=== PATIENT | female | born 1990 | race Two or more races ===

== ENCOUNTER 2018-10-02 09:30 | Inpatient (IN) | payer OTHER ==
[2018-10-09] MEDS ORDERED: PHENAZOPYRIDINE HCL 100 MG TABLET (FP) PO ONE (06:52)
[2018-10-09] MEDS ORDERED: CEFAZOLIN 1 GM/D5W 1 GM/50 ML BAG IVPB ONE (06:52)
[2018-10-09 07:00] VITALS: BMI 54.3
[2018-10-09] MEDS ORDERED: PHENAZOPYRIDINE HCL 100 MG TABLET (FP) ONE (07:04)
[2018-10-09] MEDS ORDERED: CEFAZOLIN 1 GM/D5W 1 GM/50 ML BAG ONE (07:05)
--- NOTE | 2018-10-09 07:53 | HP ---
History & Physical Update - History History: No Change - Physical Physical: No Change - Assessment Assessment: No Change - Plan Plan: No Change (No change in medical history since preop evaluation with PCP on 09/29/18. No h/o dvt/pe or use of anticoagulants.)
[2018-10-09] MEDS ORDERED: ceFAZolin SODIUM 1 GM VIAL ONE (07:56)
[2018-10-09] MEDS ORDERED: ROCURONIUM BROMIDE 50 MG/5 ML VIAL ONE ×2 (07:56→09:02)
[2018-10-09] MEDS ORDERED: LIDOCAINE HCL/PF 2% SDV 5ML VIAL ONE (07:56)
[2018-10-09] MEDS ORDERED: fentaNYL CITRATE 250 MCG/5 ML VIAL ONE (07:56)
[2018-10-09] MEDS ORDERED: PROPOFOL 20 ML ONE ×2 (07:57)
[2018-10-09] MEDS ORDERED: MIDAZOLAM HCL 2 MG/2 ML SINGLE DOSE VIAL ONE (07:57)
[2018-10-09] MEDS ORDERED: DESFLURANE GAS 240 ML BOTTLE IH ONE (08:02)
[2018-10-09] MEDS ORDERED: cefoTEtan DISODIUM 1 GM VIAL (RESTRICTED TO ID) IVPB ONE ×2 (08:20)
[2018-10-09] MEDS ORDERED: DEXAMETHASONE SOD PHOSPHATE 4 MG/1 ML VIAL ONE (08:35)
[2018-10-09] MEDS ORDERED: GLYCOPYRROLATE 0.2 MG/1 ML VIAL ONE (09:24)
[2018-10-09] MEDS ORDERED: NEOSTIGMINE METHYLSULFATE 0.5 MG/ML - 10 ML MDV ONE (09:24)
[2018-10-09] MEDS ORDERED: PROMETHAZINE HCL 25 MG/1 ML VIAL IVPUSH PRN (10:14)
[2018-10-09] MEDS ORDERED: ONDANSETRON 4 MG/2 ML VIAL IVPUSH PRN ×2 (10:14→10:47)
[2018-10-09] MEDS ORDERED: LACTATED RINGERS SOLUTION 1,000 ML IV SCH (10:15)
[2018-10-09] MEDS ORDERED: HYDROmorphone *PCA* 10MG/50ML DISP.SYRIN PCA ONE ×2 (10:15)
[2018-10-09] MEDS ORDERED: ACETAMINOPHEN 1000 MG/100 ML VIAL (NON FORMULARY) IVPB PRN (10:18)
[2018-10-09] MEDS ORDERED: HYDROmorphone *PCA* 10MG/50ML DISP.SYRIN PCA SCH (10:30)
--- NOTE | 2018-10-09 10:36 | SURG ---
Surgery Welcome Wagon Hostess Note Welcome Wagon Hostess: Cathy Louie PA-C (Suzy) Date of Service: 10/09/18 Diagnosis: Fibroids Procedure: Open abdominal myomectomy, left ovarian cystectomy, removal of right paratubal cyst I was present for the entirety of the operative procedure. For further detail, please refer to operative report. Visit type - Case Type Case Type: Scheduled - Emergency Emergency Visit: No - New patient This patient is new to me today: Yes Date on this admission: 10/09/18 - Critical Care Critical Care patient: No
--- NOTE | 2018-10-09 10:40 | OP ---
Operative Note - Note: Operative Date: 10/09/18 Pre-Operative Diagnosis: Uterine fibroids Operation: Open abdominal myomectomy, left ovarian cystectomy, removal of right paratubal cyst Findings: as dictated Implants: none Post-Operative Diagnosis: Same as Pre-op Surgeon: Katlyn Carmichael Check Scaler: Cathy Louie Anesthesiologist/WATER TRUCK DRIVER: Violetta Carrillo Anesthesia: General Specimens Removed: fibroid, left ovarian cyst, right paratubal cyst Estimated Blood Loss (mls): 75 (ml) Drains & Tubes with Location: none Fluid Volume Replaced (mls): 1,300 (ml) Operative Report Dictated: Yes
[2018-10-09] MEDS ORDERED: BISACODYL 5 MG TABLET.DR (FP) PO PRN (10:47)
[2018-10-09] MEDS ORDERED: IBUPROFEN 800 MG/8 ML IJ IVPB PRN (10:47)
[2018-10-09] MEDS ORDERED: DOCUSATE SODIUM 100 MG CAPSULE (FP) PO PRN (10:47)
[2018-10-09] MEDS ORDERED: ACETAMINOPHEN INJECTION 100 ML IVPB ONE (10:50)
[2018-10-09] MEDS ORDERED: ALBUTEROL SO4 8 GM HFA INHALER IH PRN (10:51)
[2018-10-09] MEDS ORDERED: LACTATED RINGERS SOLUTION 1,000 ML/1,000 ML INFUS.BAG IV SCH (11:00)
[2018-10-09] MEDS ORDERED: ACETAMINOPHEN 1000 MG/100 ML VIAL (NON FORMULARY) IVPB ONE (11:12)
[2018-10-09] MEDS ORDERED: PROMETHAZINE HCL 25 MG/1 ML VIAL ONE (11:25)
[2018-10-09] MEDS ORDERED: IBUPROFEN 800 MG/8 ML IJ IVPB ONE (11:40)
--- NOTE | 2018-10-09 13:18 | OP ---
Operative Note - Note: Operative Date: 10/09/18 Pre-Operative Diagnosis: Leiomyomatous Uterus uterus. Intramural myoma Operation: Abdominal myomectomy. left ovarian cystectomy. right paraovarian cystectomy Findings: 6 cm myoma serosal 3cm left ovarian cyst 2 cm right paraovarian cystectomy Post-Operative Diagnosis: Same as Pre-op (Left ovarian cyst right paraovarian cyst) Surgeon: Katlyn Carmichael First Aid Attendant: Cathy Louie Anesthesia: General Estimated Blood Loss (mls): 50 Operative Report Dictated: Yes
[2018-10-09] MEDS: CEFAZOLIN 2 GM/D5W 2 GM/50 ML ML IVPB SCH (18:28)
[2018-10-09 19:38] LABS: ANION GAP 7 MMOL/L (8-16); BLOOD UREA NITROGEN 15 mg/dL (7-18); CALCIUM 8.5 mg/dL (8.5-10.1); CHLORIDE 104 mmol/L (98-107); CO2 26 mmol/L (21-32); GLUCOSE,RANDOM 116 mg/dL (74-106); POTASSIUM 4.9 mmol/L (3.5-5.1); SODIUM 137 mmol/L (136-145)
--- NOTE | 2018-10-09 20:48 | OP ---
DATE OF OPERATION: 10/09/2018 PREOPERATIVE DIAGNOSES: Leiomyomatous uterus and intramural myoma. OPERATION: Abdominal myomectomy, left ovarian cystectomy, and right paraovarian cystectomy. SURGEON: Katlyn Carmichael MD EMERGENCY MEDCL EMT: Sandra Louie. POSTOPERATIVE DIAGNOSES: Leiomyomatous uterus, intramural myoma, left ovarian cyst, and right paraovarian cyst. ANESTHESIA: General. ANESTHESIOLOGIST: Violetta Carrillo MD PROCEDURE: Patient was taken to the operating room, placed in supine position, prepped and draped in usual sterile fashion. A timeout was performed in accordance with hospital regulation. A Pfannenstiel skin incision was made through the patient's previous scar. Cautery was then used to go through layers of abdominal wall to the level of the fascia. Fascia was cut in the midline, and cautery was then used to open the fascia in the following fashion. Aurora was then used to bluntly and sharply dissect the rectus muscle off the fascia. Muscles split in the midline and peritoneal cavity was then entered and carried upward and downward. A leiomyomatous uterus was exteriorized. Abdominal packing was then done. Tourniquet was placed in a clear space of the broad ligament and secured. Cautery was then used to make a fundal incision, approximately 6 cm, and using sharp and blunt technique, the very calcified myoma was removed. Hemostasis was achieved using cautery. Muscle was then reapproximated using continuous locking suture with using 0 Vicryl suture, and the serosa of the uterus was closed using 2-0 V-Loc suture in continuous fashion. Hemostasis was achieved. Examination of the ovaries revealed a left ovarian cyst, approximately 3 cm. Cautery was then used to enter the cyst, and cyst wall was then removed along with contents and submitted to Pathology. Hemostasis achieved using cautery. Attention was then drawn to the right ovary where a paraovarian cyst was noted and cautery of the stalk of the cyst wall was done and cyst was submitted to Pathology. No other myomas were noted in the uterus. The tourniquet was then removed. Packing was also removed. Uterus was placed back into the abdomen after Interceed was placed on the incision of the uterus. Peritoneum was then closed using 0 Vicryl suture. Fascia was then closed using 0 Vicryl suture in 2 parts. Subcutaneous was approximated using 2-0 Vicryl suture. The skin was then closed using 3-0 Vicryl in subcuticular fashion. Wound was washed and dressed. Patient tolerated the procedure well. Estimated blood loss was about 50 mL. Milind [id number] MTDD
[2018-10-09 23:35] LABS: HEMATOCRIT 34.5 % (32.4-45.2); HEMOGLOBIN 11.8 GM/dL (10.7-15.3); MCHC 34.1 g/dl (32.0-36.0); MEAN CELL VOLUME 87.9 fl (80-96); MEAN PLT VOLUME 9.4 fl (7.5-11.1); PLATELET COUNT 272 K/MM3 (134-434); RBC 3.93 M/mm3 (3.60-5.2); RDW 13.9 % (11.6-15.6); WHITE BLOOD COUNT 11.5 K/mm3 (4.0-10.0)
[2018-10-10] MEDS: CEFAZOLIN 2 GM/D5W 2 GM/50 ML ML IVPB SCH (01:25)
[2018-10-10 06:59] LABS: HEMATOCRIT 34.4 % (32.4-45.2); HEMOGLOBIN 11.1 GM/dL (10.7-15.3); MCH 28.6 pg (25.7-33.7); MCHC 32.2 g/dl (32.0-36.0); MEAN CELL VOLUME 88.7 fl (80-96); MEAN PLT VOLUME 8.7 fl (7.5-11.1); PLATELET COUNT 253 K/MM3 (134-434); RBC 3.87 M/mm3 (3.60-5.2); RDW 13.5 % (11.6-15.6); WHITE BLOOD COUNT 11.5 K/mm3 (4.0-10.0)
[2018-10-10 07:26] LABS: ANION GAP 8 MMOL/L (8-16); BLOOD UREA NITROGEN 13 mg/dL (7-18); CALCIUM 8.3 mg/dL (8.5-10.1); CHLORIDE 102 mmol/L (98-107); CO2 26 mmol/L (21-32); CREATININE 0.9 mg/dL (0.55-1.3); GLUCOSE,RANDOM 108 mg/dL (74-106); POTASSIUM 4.3 mmol/L (3.5-5.1); SODIUM 135 mmol/L (136-145)
[2018-10-10] MEDS: ACETAMINOPHEN 325 MG TABLET (FP) PO PRN ×4 (08:12→21:41)
[2018-10-10] MEDS: oxyCODONE HCL 5 MG TABLET PO PRN ×5 (08:13→21:40)
--- NOTE | 2018-10-10 08:40 | PN ---
Progress Note (short form) - Note Progress Note: POD 1, s/p Abdominal myomectomy, left ovarian cystectomy, right paraovarian cystectomy Pt seen and examined. Reports continuous pain. Utilizing YARN COMBER overnight, YARN COMBER ran out this AM, awaiting RN for PO meds. Tolerating water, has not advanced diet yet. Has not been oob, walls in place. Scant vaginal bleeding. Has not passed flatus. Denies cp/sob, n/v/d, calf pain or edema. Vital Signs Temp 97.5 F L 10/10/18 06:00 Pulse 65 10/10/18 06:00 Resp 18 10/10/18 06:00 BP 126/85 10/10/18 06:00 Pulse Ox 100 10/09/18 13:00 Intake & Output 10/09/18 10/09/18 10/10/18 11:59 23:59 11:59 Intake Total 1900 1650 1100 Output Total 1050 650 Balance 1900 600 450 Intake: IV 1700 850 700 Lactated Ringers Solution 850 700 1,000 ml @ 125 mls/hr IV ASDIR RAMONA Rx#: [id number] IVPB 100 300 Oral 700 100 Other 200 Output: Urine 1050 650 Walls 850 650 Other: Voiding Method Indwelling Catheter Indwelling Catheter CBC, BMP 10/10/18 06:00 10/10/18 06:00 Gen: awake, alert, nad. Laying in bed appears uncomfortable Resp: unlabored on NC, cta b/l CV: rrr, s1s2 Abdomen: soft, nt/nd, dressing c/d/i Ext: b/l calf soft/nt A/P: 28 y/o F w/ h/o Leiomyomatous Uterus, Intramural myoma, now POD 1 s/p Abdominal myomectomy, left ovarian cystectomy, right paraovarian cystectomy. Pt with significant pain after YARN COMBER ran out. PO narcotics and non-narcotic analgesia initiated for pain control. P: D/C walls Pain control as ordered: Oxycodone 5/10mg q4hrs prn, Tylenol 650mg q4hrs prn, Ibuprofen 800mg q8hrs, Dilaudid 2mg IV for BTP Oob ad jensen DVT prophylaxis with Lovenox 40mg qd, B/L scds at all times while in bed Bowel regimen as ordered Advance diet as tolerated Incentive spirometry strongly encouraged VS per routine IVF until tolerating PO Plan for d/c tomorrow above d/w attending Dr Carmichael
[2018-10-10] MEDS ORDERED: oxyCODONE HCL 5 MG TABLET PO PRN ×2 (10:00)
[2018-10-10] MEDS: ENOXAPARIN NA (PORCINE) 40 MG/0.4 ML DISP.SYRIN SQ SCH (10:57)
[2018-10-10] MEDS ORDERED: PCA PUMP KEY 1 EACH EACH ONE (14:16)
--- NOTE | 2018-10-10 15:17 | PN ---
Progress Note (short form) - Note Progress Note: Anesthesia postop note 28 y/o F s/p GA for abdominal myomectomy, psychological science professor for postop pain management POD#1, vss, aaox3, pain well controlled, no complaints, psychological science professor d/c'ed earlier by the surgical team. No anesthesia complications.
--- NOTE | 2018-10-10 16:58 | PATH ---
Surgical Pathology Report Patient Name: JAREN RODRIGUEZ [facility]. Rec. #: [id number] /Age/Gender: 1990 (Age: 28) / F Account: [id number] Location: [facility] OBS/PRIZE FIGHTER Taken: 10/09/2018 Received: 10/09/2018 Reported: 10/10/2018 Physicians: Katlyn Carmichael M.D. Specimen(s) Received A: UTERINE FIBROID B: LEFT OVARIAN CYST C: RIGHT PARATUBAL CYST Clinical History Uterine fibroids Final Diagnosis A. FIBROID, ABDOMINAL MYOMECTOMY: CONSISTENT WITH DEGENERATED LEIOMYOMA WITH ASSOCIATED DYSTROPHIC CALCIFICATIONS. B. OVARIAN CYST, LEFT, REMOVAL: HEMORRHAGIC CORPUS LUTEUM CYST. C. PARATUBAL CYST, RIGHT, EXCISION: PARATUBAL CYST. Electronically Signed Ailyn Hunt M.D. Gross Description A. Received in formalin labeled "fibroid," is a 111 g, 6.5 x 5.5 x 5.3 cm ramirez, rubbery nodule, consistent with a fibroid. Sectioning reveals ramirez-brown, degenerative, focally calcified parenchyma. Respiratory Care Practitioner sections are submitted in 3 cassettes. B. Received in formalin labeled "left ovarian cyst," is a 2.6 x 2.4 x 0.3 cm aggregate ramirez-red soft tissue fragments, consistent with portion of a disrupted cyst. The specimen is submitted in toto in one cassette. C. Received in formalin labeled "right paratubal cyst," is a 1.8 x 1.0 x 0.8 cm intact, translucent cyst containing clear serous fluid. The specimen is serially sectioned and entirely submitted in one cassette. /10/09/201810/09/2018
[2018-10-11] MEDS: oxyCODONE HCL 5 MG TABLET PO PRN ×3 (01:13→09:52)
[2018-10-11] MEDS: ACETAMINOPHEN 325 MG TABLET (FP) PO PRN ×3 (01:13→09:51)
[2018-10-11] MEDS: ENOXAPARIN NA (PORCINE) 40 MG/0.4 ML DISP.SYRIN SQ SCH (09:45)
[2018-10-11 11:23] VITALS: BP 116/59; PULSE 91; TEMP 98.8
--- NOTE | 2018-10-11 13:16 | DS ---
Physical Exam: SUBJECTIVE: Patient seen and examined OBJECTIVE: Vital Signs Temperature 98.8 F 10/11/18 10:00 Pulse Rate 91 H 10/11/18 10:00 Respiratory Rate 18 10/11/18 10:00 Blood Pressure 116/59 L 10/11/18 10:00 O2 Sat by Pulse Oximetry (%) 95 10/10/18 09:00 PHYSICAL EXAM GENERAL: The patient is awake, alert, and fully oriented, in no acute distress. HEAD: Normal with no signs of trauma. EYES: PERRL, extraocular movements intact, sclera anicteric, conjunctiva clear. ENT: Ears normal, nares patent, oropharynx clear without exudates, moist mucous membranes. NECK: Trachea midline, full range of motion, supple. ABDOMEN: Soft, mild tenderness, nondistended, normoactive bowel sounds, no guarding, no rebound, no hepatosplenomegaly, no masses. Incision is clean with no erythema or discharge. EXTREMITIES: warm, well-perfused, no edema. NEUROLOGICAL: Cranial nerves II through XII grossly intact. Normal speech, gait not observed. PSYCH: Normal mood, normal affect. SKIN: Warm, dry, normal turgor, no rashes or lesions noted. LABS CBC,CMP WBC 11.5 K/mm3 (4.0-10.0) H 10/10/18 06:00 RBC 3.87 M/mm3 (3.60-5.2) 10/10/18 06:00 Hgb 11.1 GM/dL (10.7-15.3) 10/10/18 06:00 Hct 34.4 % (32.4-45.2) 10/10/18 06:00 MCV 88.7 fl (80-96) 10/10/18 06:00 MCH 28.6 pg (25.7-33.7) 10/10/18 06:00 MCHC 32.2 g/dl (32.0-36.0) 10/10/18 06:00 RDW 13.5 % (11.6-15.6) 10/10/18 06:00 Plt Count 253 K/MM3 (134-434) 10/10/18 06:00 MPV 8.7 fl (7.5-11.1) 10/10/18 06:00 Sodium 135 mmol/L (136-145) L 10/10/18 06:00 Potassium 4.3 mmol/L (3.5-5.1) 10/10/18 06:00 Chloride 102 mmol/L (98-107) 10/10/18 06:00 Carbon Dioxide 26 mmol/L (21-32) 10/10/18 06:00 Anion Gap 8 MMOL/L (8-16) 10/10/18 06:00 BUN 13 mg/dL (7-18) 10/10/18 06:00 Creatinine 0.9 mg/dL (0.55-1.3) 10/10/18 06:00 Creat Clearance w eGFR > 60 (>60) 10/10/18 06:00 Random Glucose 108 mg/dL (74-106) H 10/10/18 06:00 Calcium 8.3 mg/dL (8.5-10.1) L 10/10/18 06:00 HOSPITAL COURSE: 28yo F presented to the hospital for scheduled open myomectomy. Pt tolerated the procedure well and was admitted for pain control. Pt currently complains of some mild abdominal pain, but is controlled with pain medication. Pt currently ambulating and urinating well. Pt denies fever, chills, n/v. Scant vaginal bleeding. Passing flatus. Pt will follow up with Dr. Carmichael as an outpatient, see discharge plan for details. Date of Admission:10/09/18 Date of Discharge: 10/11/18 Minutes to complete discharge: 20 Visit type - Case Type Case Type: Scheduled - Emergency Emergency Visit: No - New patient This patient is new to me today: Yes Date on this admission: 10/11/18
== END 2018-10-11 13:32 | disposition home or self-care (01) | DRG 519 ==
LOC: JSAMEDAYSX 15:15 → UNDOADMIN 15:15 → JSAMEDAYSX 10-09 05:39 → J3W 10-09 13:17
PROVIDERS: ADMIT Obstetrics & Gynecology; ATTEND Obstetrics & Gynecology
PROC: 0UB20ZZ Excision of Bilateral Ovaries, Open Approach (ICD-10-PCS; 2018-10-09)
PROC: 0UB90ZZ Excision of Uterus, Open Approach (ICD-10-PCS; principal; 2018-10-09 08:00)
DX: D25.1 Intramural leiomyoma of uterus (principal); N83.202 Unspecified ovarian cyst, left side; N83.201 Unspecified ovarian cyst, right side
CPT/HCPCS: 36415; 80048; 85027; 86850; 86900; 86901; 88304-TC; 88305-TC; 94010; 94760; J0131

== ENCOUNTER 2019-05-07 07:47 | Day surgery (SDC) | payer OTHER ==
[2019-04-30 15:40] VITALS: BMI 51.1
[2019-05-07] MEDS ORDERED: GENTAMICIN SO4 80 MG/2 ML VIAL ONE (08:07)
[2019-05-07] MEDS ORDERED: POLYMYXIN B SULFATE 500,000 UNIT VIAL ONE (08:07)
[2019-05-07] MEDS ORDERED: PROPOFOL 20 ML ONE ×2 (09:26→11:07)
[2019-05-07] MEDS ORDERED: MIDAZOLAM HCL 2 MG/2 ML SINGLE DOSE VIAL ONE (09:26)
[2019-05-07] MEDS ORDERED: NEOSTIGMINE METHYLSULFATE 0.5 MG/ML - 10 ML MDV ONE ×2 (09:42→11:10)
[2019-05-07] MEDS ORDERED: ALBUTEROL SO4 8 GM HFA INHALER IH ONE (09:51)
[2019-05-07] MEDS ORDERED: ALBUTEROL SO4 8 GM HFA INHALER IH PRN (10:07)
--- NOTE | 2019-05-07 10:07 | HP ---
[facility] - Chief Complaint Chief Complaint: Recurrent RUQ pain with gallstones consistent with recurrent biliary colic History Source: Patient Limitations to Obtaining History: No Limitations - Past Medical History Allergies/Adverse Reactions: Allergies Allergy/AdvReac Type Severity Reaction Status Date / Time No Known Drug Allergies Allergy Verified 04/30/19 15:31 [id number] Allergy Intermediate Itching Uncoded 04/30/19 15:31 SEASONAL Allergy Uncoded 04/30/19 15:31 Pulmonary: Yes: Asthma ...LMP: 04/16/19 - Current Medications Current Medications: Home Medications Medication Instructions Recorded Albuterol Sulfate Inhaler - 2 inhaler PO PRN PRN 12/17/14 [Ventolin HFA Inhaler -] [facility] Physical Exam - Physical Examination Vital Signs: Vital Signs Period Temp Pulse Resp BP Sys/Clemente Pulse Ox Last 24 Hr 97.9 F 85 17 142/90 98 Lung: Clear to auscultation Heart: Regular rate & rhythm Abdomen: Soft, No tenderness Neurological: Alert, Oriented [place] Impression/Plan - Impression/Plan Impression: Recurrent biliary colic Operative Procedure: Laparoscopic possible open cholecystectomy Date to be Performed: 05/07/19
[2019-05-07] MEDS ORDERED: BUPIVACAINE HCL 0.25% 125 MG/50 ML VIAL ONE (10:55)
[2019-05-07] MEDS ORDERED: GLYCOPYRROLATE 0.2 MG/1 ML VIAL ONE (11:10)
[2019-05-07] MEDS ORDERED: ACETAMINOPHEN INJECTION 100 ML IVPB ONE (12:25)
[2019-05-07] MEDS ORDERED: ACETAMINOPHEN 1000 MG/100 ML VIAL (NON FORMULARY) IVPB ONE ×2 (12:30→13:50)
[2019-05-07] MEDS ORDERED: ONDANSETRON 4 MG/2 ML VIAL IVPUSH PRN ×2 (12:36→13:49)
[2019-05-07] MEDS ORDERED: ACETAMINOPHEN 325 MG TABLET (FP) PO PRN ×2 (12:36→20:00)
--- NOTE | 2019-05-07 12:40 | OP ---
Operative Note - Note: Operative Date: 05/07/19 Pre-Operative Diagnosis: Recurrent biliary colic Operation: Laparoscopic cholecystectomy Post-Operative Diagnosis: Same as Pre-op Surgeon: Yosih Alford Lodging Manager: Jose Caicedo Anesthesia: General Specimens Removed: Gallbladder Estimated Blood Loss (mls): 5 Operative Report Dictated: Yes
[2019-05-07] MEDS ORDERED: D5-1/2NS+20 MEQ KCL - 20 MEQ/1,000 ML INFUS.BAG IV SCH (12:45)
[2019-05-07 13:13] LABS: HEMATOCRIT 33.7 % (32.4-45.2); HEMOGLOBIN 11.1 GM/dl (10.7-15.3); MCH 29.8 pg (25.7-33.7); MCHC 32.8 g/dl (32.0-36.0); MEAN CELL VOLUME 90.8 fl (80-96); MEAN PLT VOLUME 8.8 fl (7.5-11.1); PLATELET COUNT 242 K/MM3 (134-434); RBC 3.71 M/mm3 (3.60-5.2); RDW 15.1 % (11.6-15.6); WHITE BLOOD COUNT 11.5 K/mm3 (4.0-10.8)
[2019-05-07 13:29] LABS: CALCIUM 8.1 mg/dl (8.5-10); CREATININE 0.9 mg/dl (0.55-1.3); POTASSIUM 3.7 mmol/L (3.5-5.1)
[2019-05-07] MEDS: morphine SULFATE 4 MG/ML VIAL IVPUSH PRN ×2 (13:40→17:00)
[2019-05-07] MEDS ORDERED: PROMETHAZINE HCL 25 MG/1 ML VIAL IVPUSH PRN (13:49)
[2019-05-07] MEDS ORDERED: oxyCODONE HCL 5 MG TABLET PO PRN ×2 (13:49)
[2019-05-07 14:01] VITALS: TEMP 98.1
--- NOTE | 2019-05-07 14:17 | SPEC ---
DATE OF OPERATION: 05/07/2019 SURGEON: Yoshi Alford MD AIRLINE MANAGER: Jose Caicedo MD PREOPERATIVE DIAGNOSIS: Recurrent biliary colic. POSTOPERATIVE DIAGNOSIS: Recurrent biliary colic. PROCEDURE: Laparoscopic cholecystectomy. PLACE OF SERVICE: [facility] SPECIMEN: Gallbladder. ESTIMATED BLOOD LOSS: 5 mL. DRAINS: None. ANESTHESIA: General endotracheal. REASON FOR PROCEDURE: A 29-year-old female, presented to the office for recurrent biliary colic. She was found to have gallstones on imaging and, because of her symptoms as well as her imaging, she was consented for a laparoscopic possible open cholecystectomy. After discussing the different surgical and nonsurgical options, she agreed with the plan. RISKS AND BENEFITS: The risks and benefits of a laparoscopic, possible open cholecystectomy were explained. These included bleeding, infection, hernia, GA, DVT, PE, injury to surrounding structures including the liver, colon, bowel, bile ducts, vessel injury, nerve injury, bile leak, and retained stones as some of the possible complications. The patient understood and signed informed consents. DESCRIPTION OF PROCEDURE: The patient was placed supine on the operating room table. The patient underwent general endotracheal intubation. The abdomen was prepped and draped in the usual sterile fashion. A timeout was performed. A periumbilical incision was made, and a 5-mm optical trocar was inserted under direct visualization with the laparoscope. Pneumoperitoneum was then established. Subsequently, a 5-mm trocar was placed in the subxiphoid area and two 5-mm trocars were placed in the right upper quadrant. The 5-mm trocar at the periumbilical region was removed and a 10-mm trocar was inserted. The patient was placed in reverse Trendelenburg, right side up position. The gallbladder was noted and was retracted cephalad and laterally. Any overlying omental adhesions were carefully dissected. The peritoneum was dissected using electrocautery. The cystic duct followed by the cystic artery were circumferentially dissected, clipped and transected. The gallbladder was removed off the liver bed using electrocautery. Hemostasis of the liver bed and surrounding area was attained using electrocautery. The gallbladder was placed in an EndoCatch bag. Copious irrigation and suction were performed until clear. The gallbladder was removed from the abdominal cavity. The fascia at the 10-mm trocar site was closed using a 0-Vicryl suture. All incision sites were irrigated and Marcaine was injected. Hemostasis of all incision sites was noted. All incision sites were closed using 4-0 Biosyn. Sterile dressings were applied. The patient tolerated the procedure well and was transferred to the recovery room in stable condition. Milind RODRIGUEZ/[id number]
[2019-05-07] MEDS ORDERED: oxyCODONE HCL 5 MG TABLET ONE (15:24)
[2019-05-07 18:38] VITALS: BP 147/85; PULSE 74
--- NOTE | 2019-05-09 12:38 | PATH ---
Surgical Pathology Report Patient Name: JAREN RODRIGUEZ [facility]. Rec. #: [id number] /Age/Gender: 1990 (Age: 29) / F Account: [id number] Location: [facility] AMBULATORY Taken: 05/07/2019 Received: 05/08/2019 Reported: 05/09/2019 Physicians: Yoshi Alford M.D. Specimen(s) Received GALLBLADDER Clinical History Biliary colic Final Diagnosis GALLBLADDER, LAPAROSCOPIC CHOLECYSTECTOMY: CHRONIC CHOLECYSTITIS WITH CHOLELITHIASIS. Electronically Signed Ailyn Hunt M.D. Gross Description Received in formalin, labeled "gallbladder," is a 9.3 x 2.2 x 2.1 cm. gallbladder with a 0.2 cm. in length portion of cystic duct attached. The outer surface is a ramirez-smith and varies from smooth to shaggy. The lumen contains green, tenacious bile as well as abundant yellow, irregular to fragmented choleliths ranging from 0.1-1.8 cm in greatest dimension. The mucosa is green with focal erosions. The wall of the gallbladder ranges from 0.1-0.2 cm. in thickness. Real Estate Legal Assistant sections are submitted in one cassette. 05/08/2019 saudi05/08/2019
== END 2019-05-07 18:00 | disposition home or self-care (01) ==
LOC: FASU 07:47
PROVIDERS: ATTEND Surgery
PROC: 0FT44ZZ Resection of Gallbladder, Percutaneous Endoscopic Approach (ICD-10-PCS; principal; 2019-05-07 10:55)
DX: K80.50 Calculus of bile duct without cholangitis or cholecystitis without obstruction (principal)
CPT/HCPCS: 36415; 80048; 84703; 85027; 88304-TC; 94760; J0131

== ENCOUNTER 2020-11-22 21:36 | Emergency (ER) | payer OTHER ==
[2020-11-22 21:55] VITALS: TEMP 98.1; BMI 31.3
[2020-11-23] MEDS ORDERED: ACETAMINOPHEN 325 MG TABLET (FP) PO ONE (00:32)
[2020-11-23] MEDS ORDERED: ACETAMINOPHEN 325 MG TABLET (FP) ONE (00:36)
[2020-11-23] MEDS ORDERED: FAMOTIDINE 20 MG TABLET PO ONE (03:11)
[2020-11-23] MEDS ORDERED: FAMOTIDINE 20 MG TABLET ONE (03:22)
[2020-11-23 03:24] VITALS: BP 132/74; PULSE 89
== END 2020-11-23 03:43 | disposition home or self-care (01) ==
LOC: JER 21:36
DX: T78.40XA Allergy, unspecified, initial encounter (principal)
CPT/HCPCS: 99283-25

== ENCOUNTER 2020-12-10 15:00 | Emergency (ER) | payer OTHER ==
[2020-12-10 15:29] VITALS: BP 150/91; PULSE 100; TEMP 98.1; BMI 48.0
[2020-12-10 17:10] LABS: BASO % 0.4 % (0-2.0); EOS % 0.1 % (0-4.5); HEMATOCRIT 41.8 % (32.4-45.2); HEMOGLOBIN 14.1 GM/dL (10.7-15.3); LYMPH % 19.8 % (8-40); MCH 30.4 pg (25.7-33.7); MCHC 33.6 g/dl (32.0-36.0); MEAN CELL VOLUME 90.4 fl (80-96); MEAN PLT VOLUME 8.5 fl (7.5-11.1); MONO % 4.7 % (3.8-10.2); PLATELET COUNT 360 K/MM3 (134-434); RBC 4.63 M/mm3 (3.60-5.2); RDW 13.7 % (11.6-15.6); WHITE BLOOD COUNT 11.2 K/mm3 (4.0-10.0)
[2020-12-10 17:32] LABS: POTASSIUM 5.5 mmol/L (3.5-5.1)
[2020-12-10 17:34] LABS: ALBUMIN 3.8 g/dl (3.4-5.0); BLOOD UREA NITROGEN 9.5 mg/dL (7-18); CALCIUM 9.1 mg/dL (8.5-10.1)
[2020-12-10 17:39] LABS: BILIRUBIN,TOTAL 0.7 mg/dL (0.2-1); TOT PROT 8.1 g/dl (6.4-8.2)
== END 2020-12-10 18:04 | disposition home or self-care (01) ==
LOC: JER 15:00
DX: R00.2 Palpitations (principal)
CPT/HCPCS: 36415; 80053; 84443; 84703; 85025; 93005; 93010; 99284-25

== ENCOUNTER 2020-12-11 13:52 | Emergency (ER) | payer OTHER ==
[2020-12-11 14:04] VITALS: BMI 48.0
[2020-12-11] MEDS ORDERED: SODIUM CHLORIDE 1,000 ML IV STA (15:39)
[2020-12-11] MEDS ORDERED: ACETAMINOPHEN 1000 MG/100 ML VIAL (NON FORMULARY) IVPB ONE (16:34)
[2020-12-11] MEDS ORDERED: ACETAMINOPHEN INJECTION 100 ML IVPB ONE (16:43)
[2020-12-11] MEDS ORDERED: FAMOTIDINE 20 MG/50 ML IVPB 20 MG/50 ML MG IVPB ONE (16:44)
[2020-12-11 17:01] LABS: BASO % 0.4 % (0-2.0); EOS % 0.2 % (0-4.5); HEMATOCRIT 39.1 % (32.4-45.2); HEMOGLOBIN 13.3 GM/dL (10.7-15.3); LYMPH % 18.4 % (8-40); MCH 30.2 pg (25.7-33.7); MCHC 34.1 g/dl (32.0-36.0); MEAN CELL VOLUME 88.7 fl (80-96); MEAN PLT VOLUME 8.3 fl (7.5-11.1); MONO % 4.6 % (3.8-10.2); NEUT % 76.4 % (42.8-82.8); PLATELET COUNT 327 K/MM3 (134-434); RBC 4.41 M/mm3 (3.60-5.2); RDW 14.2 % (11.6-15.6); WHITE BLOOD COUNT 13.8 K/mm3 (4.0-10.0)
[2020-12-11 17:16] LABS: POTASSIUM 4.1 mmol/L (3.5-5.1)
[2020-12-11 17:18] LABS: ALBUMIN 3.9 g/dl (3.4-5.0); BLOOD UREA NITROGEN 10.4 mg/dL (7-18); CALCIUM 9.3 mg/dL (8.5-10.1)
[2020-12-11 17:22] LABS: CREATININE 1.2 mg/dL (0.55-1.3)
[2020-12-11 17:23] LABS: BILIRUBIN,TOTAL 0.6 mg/dL (0.2-1); TOT PROT 7.5 g/dl (6.4-8.2)
[2020-12-11 17:46] LABS: URINE BENZODIAZEPINES NEGATIVE ng/ml (CUTOFF=200)
[2020-12-11 17:47] LABS: METHADONE, UR NEGATIVE ng/ml (CUTOFF=300); OPIATES, URI NEGATIVE ng/ml (CUTOFF=300); PHENCYCLIDINE,URINE NEGATIVE ng/ml (CUTOFF=25)
[2020-12-11 17:48] LABS: COCAINE, UR NEGATIVE ng/ml (CUTOFF=300); URINE AMPHETAMINES NEGATIVE ng/ml (CUTOFF=500); URINE BARBITURATES NEGATIVE ng/ml (CUTOFF=200)
[2020-12-11 18:30] LABS: URINE APPEARANCE CLOUDY; URINE BILIRUBIN NEGATIVE (NEGATIVE); URINE GLUCOSE (UA) NEGATIVE (NEGATIVE)
[2020-12-11 18:31] LABS: URINE LEUK ESTERASE TRACE (NEGATIVE); URINE NITRITE NEGATIVE (NEGATIVE); URINE UROBILINOGEN 0.2 mg/dL (0.2-1.0)
[2020-12-11 18:33] LABS: EPI CELLS >36 /uL (0-25.1); HYALINE CASTS 2 /uL (0-3.1); URINE BACTERIA 2 /uL (0-1359); URINE COLOR DK YELLOW; URINE KETONE 1+ (NEGATIVE); URINE PROTEIN 2+ (NEGATIVE); URINE RBC 5 /uL (0-23.9); URINE WBC 23 /uL (0-25.8)
[2020-12-11 19:40] VITALS: BP 110/67; PULSE 72; TEMP 98.5
== END 2020-12-11 19:43 | disposition home or self-care (01) ==
LOC: JER 13:52
PROC: 3E0333Z Introduction of Anti-inflammatory into Peripheral Vein, Percutaneous Approach (ICD-10-PCS; principal; 2020-12-11)
PROC: 3E0337Z Introduction of Electrolytic and Water Balance Substance into Peripheral Vein, Percutaneous Approach (ICD-10-PCS; 2020-12-11)
DX: K21.9 Gastro-esophageal reflux disease without esophagitis (principal)
CPT/HCPCS: 36415; 71046-TC-FY; 80053; 80307; 81003; 85025; 87086; 93005; 93010; 99285-25; J0131

== ENCOUNTER 2020-12-28 17:48 | Emergency (ER) | payer OTHER ==
[2020-12-28 18:08] VITALS: BMI 48.0
[2020-12-28] MEDS ORDERED: IBUPROFEN 600 MG TABLET (FP) PO ONE ×2 (18:57→20:44)
[2020-12-28 19:41] LABS: BASO % 0.3 % (0-2.0); EOS % 1.2 % (0-4.5); HEMATOCRIT 36.4 % (32.4-45.2); HEMOGLOBIN 12.3 GM/dL (10.7-15.3); LYMPH % 21.3 % (8-40); MCH 30.5 pg (25.7-33.7); MCHC 33.6 g/dl (32.0-36.0); MEAN CELL VOLUME 90.8 fl (80-96); MEAN PLT VOLUME 7.7 fl (7.5-11.1); NEUT % 72.2 % (42.8-82.8); PLATELET COUNT 311 K/MM3 (134-434); RBC 4.01 M/mm3 (3.60-5.2); RDW 14.5 % (11.6-15.6); WHITE BLOOD COUNT 10.2 K/mm3 (4.0-10.0)
[2020-12-28 20:11] LABS: POTASSIUM 4.2 mmol/L (3.5-5.1)
[2020-12-28 20:13] LABS: ALBUMIN 3.2 g/dl (3.4-5.0); BLOOD UREA NITROGEN 12.8 mg/dL (7-18); CALCIUM 8.6 mg/dL (8.5-10.1)
[2020-12-28 20:18] LABS: BILIRUBIN,TOTAL 0.2 mg/dL (0.2-1); TOT PROT 6.9 g/dl (6.4-8.2)
[2020-12-28] MEDS ORDERED: SODIUM CHLORIDE 0.9% 500 ML INFUS.BAG IV ONE (20:36)
[2020-12-28 22:22] VITALS: BP 138/81; PULSE 81; TEMP 98
== END 2020-12-28 22:28 | disposition home or self-care (01) ==
LOC: JER 17:48 → SUPCPDRO 17:48 → JER 22:28
DX: R06.02 Shortness of breath (principal); R07.9 Chest pain, unspecified
CPT/HCPCS: 36415; 71046-TC-FY; 71275-TC; 80053; 84703; 85025; 85379; 93005; 93010; 99285-25; Q9967